=== PATIENT | female | born 1930 | race Caucasian/White ===

== ENCOUNTER 2018-04-23 12:37 | Emergency (ER) | payer MEDICARE, SELFPAY ==
[~2018-04-23] VITALS: Ht 152.4 cm; Wt 104.8 kg
[~2018-04-23 12:37] MED LIST: ALBIPROI; ALBU90OI INH; ALBUIS IH; ALLER-TEC PO; AMLO10 PO; ASPI81CH; ASPI81EC PO; Aldactazide 251 EACH PO; Aspirin EC81 MG; CYAN1000 IM; CYAN1000I IM; DIGO.25 PO; DILT120 PO; DIPH50; Dulcolax5 MG PO; Ecotrin Low Strength PO; FISH1000 PO; FORM12IH IH; FURO40; FURO40 PO; GABA100 PO; GAVILAX17 GM PO; GLUC500; GLUCHON; GREEN COFFEE B400 MG PO; HYDGUAL120 PO; HYDHCL25 PO; IPRA.03NI; IPRAIS NEB; L-Lysine500 M1 PO; LANOXIN125 MCG PO; LAVAP17G PO; LEVFLO500 PO; LEVSOD100 PO; LEVSOD75 PO; LISI20; LISI20 PO; LISI5 PO; MAGNESIUM400 MG PO; MELO7.5 PO; METO10 PO; METO25ER; METO50 PO; METO50ER PO; MOME220I INH; MONT10T PO; MULT50L PO; MULTCH; POTA10T PO; PRED5 PO; PRESER VISION PO; PRESSER VISION PO; SPIR25 PO; TEMA15; TEMA15 PO; TRAM50 PO; TRIA80TC; TRIAOI; VIT1CAPS12 PO; VITAMIN D34000 UNIT PO; WARF5; ZYRTEC10 M1 PO
[2018-04-23 13:41] LABS: BASOPHILS ABSOLUTE AUTO 0.06 K/mm3 (0.00-0.23); BASOPHILS PERCENT AUTO 1 % (0-2); EOSINOPHILS PERCENT AUTO 3 % (0-6); Hematocrit 39.6 % (33.0-51.0); Hemoglobin 12.9 g/dL (11.5-16.0); IMMATURE GRAN ABSOLUTE AUTO 0.08 K/mm3 (0.00-0.10); IMMATURE GRAN PERCENT AUTO 1 % (0-1); LYMPHOCYTES ABSOLUTE AUTO 2.86 K/mm3 (0.84-5.20); LYMPHOCYTES PERCENT AUTO 24 % (21-46); MONOCYTES ABSOLUTE AUTO 1.14 K/mm3 (0.16-1.47); MONOCYTES PERCENT AUTO 10 % (4-13); Mean Corpuscular HGB 31.8 pg (26.0-34.0); Mean Corpuscular HGB Conc 32.6 g/dL (31.5-36.5); Mean Corpuscular Volume 98 fL (80-100); Mean Platelet Volume 9.4 fL (9.1-12.4); NEUTROPHILS ABSOLUTE AUTO 7.44 K/mm3 (1.96-9.15); NEUTROPHILS PERCENT AUTO 63 % (41-73); Platelet Count 421 K/mm3 (150-400); RDW Coefficient Variation 14.1 % (11.7-14.2); RDW Standard Deviation 50.8 fL (35.1-46.3); Red Blood Cell Count 4.06 M/mm3 (3.80-5.20); White Blood Cell Count 11.88 K/mm3 (4.00-11.30)
[2018-04-23 13:59] LABS: International Normalized Ratio 1.13; Prothrombin Time Results 11.6 Sec (9.7-11.5)
[2018-04-23 14:06] LABS: Alanine Aminotransfer (ALT/SGP 39 U/L (12-78); Albumin, Blood 3.6 g/dL (3.4-5.0); Alk Phos 127 U/L (50-136); Anion Gap 11 mmol/L (6-16); Aspartate Aminotrans (AST/SGOT 32 U/L (12-37); Bilirubin, Total 0.4 mg/dL (0.1-1.0); Blood Urea Nitrogen 7 mg/dL (8-24); Bun/Creatinine Ratio 10.7 (12.0-20.0); CO2, Blood 23 mmol/L (21-32); Calcium, Blood 7.9 mg/dL (8.5-10.1); Chloride, Blood 105 mmol/L (98-108); Creatinine, Blood 0.65 mg/dL (0.40-1.00); Digoxin (Lanoxin) 0.75 ug/mL (0.80-2.00); Globulin, Blood 3.7 g/dL (2.2-4.0); Glomerular Filtration Rate >60 (60-); Glucose, Blood 100 mg/dL (70-99); Potassium, Blood 3.3 mmol/L (3.5-5.5); Sodium, Blood 139 mmol/L (136-145); Total Protein, Blood 7.3 g/dL (6.4-8.2); Troponin I <0.015 ng/mL (0.000-0.040)
[2018-04-23] MEDS ORDERED: XARELTO20 MG PO (14:18)
[2018-04-23] MEDS ORDERED: LOSA25 PO (14:18)
[2018-04-23] MEDS ORDERED: MONT10T PO (14:21)
[2018-04-23] MEDS ORDERED: NITR.4SL SL (14:22)
[2018-04-23] MEDS ORDERED: LOVA40 PO (14:22)
[2018-04-23] MEDS ORDERED: L-Lysine500 M1 PO (14:23)
[2018-04-23] MEDS ORDERED: DIPH50 PO (14:23)
[2018-04-23] MEDS ORDERED: Ipratropium Bro15 ML (14:23)
[2018-04-23] MEDS ORDERED: Cardizem CD 12120 MG PO (15:05)
== END 2018-04-23 15:37 | disposition home or self-care (01) ==
LOC: ER 12:37
PROVIDERS: Emergency Medicine
DX: I48.91 Unspecified atrial fibrillation (principal); Z88.8 Allergy status to other drugs, medicaments and biological substances; Z91.040 Latex allergy status; Z91.048 Other nonmedicinal substance allergy status; Z79.899 Other long term (current) drug therapy; Z79.891 Long term (current) use of opiate analgesic; Z79.82 Long term (current) use of aspirin; Z79.01 Long term (current) use of anticoagulants; Z87.891 Personal history of nicotine dependence; J44.9 Chronic obstructive pulmonary disease, unspecified; F32.9 Major depressive disorder, single episode, unspecified; F41.9 Anxiety disorder, unspecified; Z86.73 Personal history of transient ischemic attack (TIA), and cerebral infarction without residual deficits; E03.9 Hypothyroidism, unspecified; I11.0 Hypertensive heart disease with heart failure; I50.22 Chronic systolic (congestive) heart failure
CPT/HCPCS: 71046; 80053; 80162; 84484; 85025; 85610; 85730; 93005; 93010; 99283

== ENCOUNTER → 2020-02-25 | Outpatient (CLI) | payer MEDICARE ==
[~2020-02-25] MED LIST changes: +Cardizem CD 12120 MG PO; +DIPH50 PO; +Ipratropium Bro15 ML; +LOSA25 PO; +LOVA40 PO; +NITR.4SL SL; +XARELTO20 MG PO
== END | disposition home or self-care (01) ==
LOC: LAB 13:52 → LAB SHORT 13:52
DX: R10.9 Unspecified abdominal pain (principal)
CPT/HCPCS: 87086